=== PATIENT | male | born 1995 ===

== ENCOUNTER → 2018-11-26 | Emergency (ER) | payer OTHER ==
[~2018-11-26] VITALS: Ht 175.3 cm; Wt 113.4 kg
[~2018-11-26] MED LIST: DICLOFENAC SODI50 MG PO; SKELAXIN800 MG PO
== END | disposition home or self-care (01) ==
LOC: ER 12:23
DX: M54.5 Low back pain (principal)

== ENCOUNTER 2019-01-22 22:49 | Emergency (ER) | payer OTHER ==
[~2019-01-22] VITALS: Ht 172.7 cm; Wt 108.0 kg
[2019-01-22] MEDS ORDERED: XANAX1 MG (23:36)
[2019-01-23] MEDS ORDERED: DICLOFENAC SOD100 MG PO (02:01)
[2019-01-23] MEDS ORDERED: CYCLOBENZAPRINE10 MG PO (02:01)
== END 2019-01-23 02:14 | disposition home or self-care (01) ==
LOC: ER 22:49
DX: M54.41 Lumbago with sciatica, right side (principal)